=== PATIENT | female | born 1960 | race Caucasian/White ===

== ENCOUNTER → 2017-03-12 | Outpatient (CLI) | payer BC ==
--- NOTE | 2017-03-13 14:22 | MAMMOGRAPHY REPORT ---
BILATERAL DIGITAL SCREENING MAMMOGRAM TOMOSYNTHESIS WITH CAD: 03/12/2017 CLINICAL HISTORY: Routine screening. Patient has no complaints. TECHNIQUE: Breast tomosynthesis in addition to standard 2D mammography was performed. Current study was also evaluated with a Computer Aided Detection (CAD) system. COMPARISON: Comparison is made to exams dated: 08/15/2011 mammogram, 08/15/2011 ultrasound, 10/30/2010 a spiration, 10/30/2010 ultrasound biopsy, 10/30/2010 aspiration, and 10/25/2010 ultrasound - [facility]. BREAST COMPOSITION: The tissue of both breasts is heterogeneously dense, which may obscure small mas ses. FINDINGS: There is a newly visualized 6 mm asymmetry in the far posterior right breast, along the po sterior nipple line on the CC view, for which additional spot compression tomosynthesis views and pos sible ultrasound are recommended. This is probably in the 6:00 axis, given the inferior location bas ed on the tomosynthesis localizer bar, although it is not definitively seen on the MLO view. There is a stable metallic biopsy marker in the left breast. No other suspicious mass, architectural distortion or cluster of microcalcifications is seen. IMPRESSION: ACR BI-RADS CATEGORY 0: INCOMPLETE EVALUATION: NEED ADDITIONAL IMAGING EVALUATION The newly visualized 6 mm asymmetry in the posterior right breast needs additional evaluation. The patient will be called to schedule an appointment. Approximately 10% of breast cancers are not detected with mammography. A negative mammographic report should not delay biopsy if a clinically suggestive mass is present. Chetna Padron M.D. ay/:03/12/2017 18:46:40 Director Social Service: Roxana GRULLON(Matt)(Meredith), [facility] letter sent: Addl Imaging 0 BI-RADS Code: ACR BI-RADS Category 0: Incomplete Evaluation: Need Additional Imaging Evaluation
== END | disposition home or self-care (01) ==
LOC: C.MAMM 15:29
PROVIDERS: ATTEND Physician Assistant Medical
DX: Z12.31 Encounter for screening mammogram for malignant neoplasm of breast (principal); N64.89 Other specified disorders of breast

== ENCOUNTER → 2017-03-26 | Outpatient (CLI) | payer BC ==
--- NOTE | 2017-03-27 07:58 | MAMMOGRAPHY REPORT ---
UNILATERAL RIGHT DIGITAL DIAGNOSTIC MAMMOGRAM TOMOSYNTHESIS AND TARGETED RIGHT ULTRASOUND: 03/26/2017 CLINICAL HISTORY: 56-year-old woman called back from screening mammography for a newly visualized 5 m m nodular asymmetry in the far posterior right breast, along the posterior nipple line on the CC view . TECHNIQUE: A spot compression right CC tomosynthesis view was obtained. Additional right CC and MLO tomosynthesis views were obtained after placement of a skin BB marker. COMPARISON: Comparison is made to exams dated: 03/12/2017 mammogram, 01/07/2015 mammogram, 01/22/2014 u ltrasound, 01/22/2014 mammogram, 01/06/2014 mammogram, and 08/18/2012 mammogram - [facility] enter. BREAST COMPOSITION: The tissue of the right breast is heterogeneously dense, which may obscure small masses. FINDINGS: The spot compression right CC tomosynthesis view demonstrates persistence of a 4 mm renifo rm shaped mass in the far posterior right breast, along the posterior nipple line, projecting over th e pectoralis muscle. There is an adjacent/abutting blood vessel. No architectural distortion or charity rocalcification. Based on the tomosynthesis localizer bar this is in the inferior/6:00 axis of the r ight breast. Further evaluation with ultrasound was performed. Targeted ultrasound was performed in the 5:00, 6:00 and 7:00 axes of the right breast. In the 6:00 a xis, 1 cm from the nipple, there is an oval parallel circumscribed hypoechoic solid versus cystic mas s measuring 3.5 x 2.4 x 4.0 mm. Given the proximity to the nipple it is unclear if this lesion corre lates with the mammographic finding. Therefore, a skin BB was placed overlying this sonographic mass and repeat full field right CC and MLO tomosynthesis images were obtained. The BB marker does not a lign with the mammographic asymmetry in question. Review of a prior breast MRI obtained in 2013 does demonstrate a T2 hyperintense lobulated mass with fatty notch and feeding vessel in the far posterior 6:00 right breast, most likely representing a edgard ign intramammary lymph node. This could account for the mammographic nodular asymmetry and therefore it is probably benign. The mass identified sonographically in the 6:00 axis, 1 cm from the nipple a lso has a benign sonographic appearance given the oval shaped, parallel orientation and circumscribed margins. Nevertheless, a short interval follow-up right diagnostic tomosynthesis mammogram, to incl ude posterior inferior tissue, and repeat targeted ultrasound in the 6:00 axis is recommended in 6 mo nths to ensure stability of both the mammographic finding and sonographic finding. IMPRESSION: ACR-BI-RADS CATEGORY 3: PROBABLY BENIGN, TARGETED ULTRASOUND ACR-BI-RADS CATEGORY 3: PRO BABLY BENIGN 1. The 4 mm reniform shaped nodular asymmetry with adjacent vessel in the far posterior right breast in the approximate 6:00 axis most likely represents an intramammary lymph node. Review of a prior b reast MRI from 2013 did demonstrate a lymph node in that location and it may be newly visualized give n inclusion of more posterior tissue on the current screening mammogram. Nevertheless, a short inter luba follow-up right diagnostic tomosynthesis mammogram and possible ultrasound is read mad to ensure stability in 6 months. 2. While evaluating for the asymmetry an oval circumscribed hypoechoic solid versus cystic 4 mm mass was incidentally seen in the 6:00 right breast, 1 cm from the nipple that has a benign sonographic a ppearance. However, a short interval follow-up targeted ultrasound is recommended to ensure stabilit y in 6 months. These results and recommendations were discussed with the patient at the time of the exam. Approximately 10% of breast cancers are not detected with mammography. A negative mammographic report should not delay biopsy if a clinically suggestive mass is present. Chetna Padron M.D. ay/:03/26/2017 15:20:31 Dye Jig Operator: Lucila GRULLON(Matt)(Meredith), [facility] letter sent: Follow Up Recommended 3 BI-RADS Code: ACR-BI-RADS Category 3: Probably Benign Ultrasound BI-RADS: ACR-BI-RADS Category 3: Pr obably Benign
== END | disposition home or self-care (01) ==
LOC: C.MAMM 13:28
PROVIDERS: ATTEND Physician Assistant Medical
DX: N64.89 Other specified disorders of breast (principal)

== ENCOUNTER → 2017-09-27 | Outpatient (CLI) | payer BC ==
--- NOTE | 2017-09-27 15:05 | MAMMOGRAPHY REPORT ---
UNILATERAL RIGHT DIGITAL DIAGNOSTIC MAMMOGRAM TOMOSYNTHESIS WITH CAD AND TARGETED RIGHT ULTRASOUND: CLINICAL HISTORY: Short interval follow-up of right breast mass. The patient reports no palpable lum ps or other complaints. TECHNIQUE: Breast tomosynthesis in addition to standard 2D mammography was performed. Current study was also evaluated with a Computer Aided Detection (CAD) system. Right CC and MLO 2D and tomosynthes is images were obtained. COMPARISON: Comparison is made to exams dated: 03/26/2017 mammogram, 03/26/2017 ultrasound, 03/12/2017 mammogram, 01/07/2015 mammogram, 01/22/2014 ultrasound, and 01/22/2014 mammogram - [facility]. BREAST COMPOSITION: The tissue of the right breast is heterogeneously dense, which may obscure small masses. FINDINGS: Again noted is a circumscribed oval 7 mm low-density mass within the right posterior breast along the posterior nipple line on the cc view, not clearly evident on the MLO view. The mass is st able in size and appearance compared to the March 2017 exam, and in retrospect is also likely not significantly changed compared to the 2014 exam when accounting for differences in mammographic tech nique. Additionally, a morphologically normal intramammary lymph node is seen within the right 6:00 posterior breast on a prior 2013 breast MRI, which likely corresponds with this mammographic mass. The remainder of the right breast is stable compared to prior exams, without suspicious masses, calci fications, or areas of architectural distortion noted. Targeted ultrasound was performed of the right 6:00 breast in the region of the mammographic mass. I n the right breast at 6:00, 1 cm from the nipple, again noted is a circumscribed nearly anechoic roun d 3 X 2 x 3 mm mass. The mass does not appear significantly changed in size compared to the 2016 exam and actually appears more cystic on the current exam. The mass is benign and compatible with a cyst. The remainder of the right 6:00 breast demonstrates no suspicious masses or other suspi cious sonographic abnormalities. A clear correlate for the mammographic mass is not seen. IMPRESSION: ACR-BI-RADS CATEGORY 3: PROBABLY BENIGN, TARGETED ULTRASOUND ACR-BI-RADS CATEGORY 3: PRO BABLY BENIGN 1. The low-density circumscribed 7 mm mass in the right posterior breast appears stable mammographic ally dating back to the 2014 exam and likely corresponds with an intramammary lymph node seen on a pr ior 2014 breast MRI. No clear sonographic correlate is evident. The mass is probably benign and rec ommend bilateral diagnostic tomosynthesis mammograms and possible ultrasound in 6 months, to confirm longer stability of the right breast mass and for routine mammography of the left breast. 2. Small benign 3 mm cyst in the right breast at 6:00 on ultrasound, stable compared to the 2016 exam. The patient has been verbally notified of the results. Approximately 10% of breast cancers are not detected with mammography. A negative mammographic report should not delay biopsy if a clinically suggestive mass is present. Felipa Reilly M.D. ah/:09/27/2017 12:09:39 Sponge Buffer: Lucila Pina, [facility] letter sent: Follow Up Recommended 3 BI-RADS Code: ACR-BI-RADS Category 3: Probably Benign Ultrasound BI-RADS: ACR-BI-RADS Category 3: Pr obably Benign
== END | disposition home or self-care (01) ==
LOC: C.MAMM 10:33
PROVIDERS: ATTEND Physician Assistant Medical
DX: R92.8 Other abnormal and inconclusive findings on diagnostic imaging of breast (principal); N63.10 Unspecified lump in the right breast, unspecified quadrant